=== PATIENT | male | born 1990 | race Caucasian/White ===

== ENCOUNTER 2016-10-15 12:58 | Emergency (ER) | payer MEDICAID ==
--- NOTE | 2016-10-15 13:53 | XRAY Preliminary Report ---
Exam: XR Ankle 3 View RT IMPRESSION: 1. Tiny loose body in the anterior tibiotalar joint space. 2. Tiny loose body or avulsion fracture of indeterminate age off the medial malleolus . [facility] SITE ID: [id number]
--- NOTE | 2016-10-15 14:03 | XRAY Report ---
EXAM: Right Ankle Radiography EXAM DATE: 10/15/2016 01:29 PM. CLINICAL HISTORY: Right ankle pain. COMPARISON: None. TECHNIQUE: 3 views. FINDINGS: Bones: 2 x 3 mm calcification anterior ankle joint, subjacent to the anterior tibial plafond. 2 x 3 mm calcification immediately medial to the tip of the medial malleolus. Joints: Normal. No tibiotalar joint effusion. No subluxations. Soft Tissues: Mild edema over the lateral malleolus. IMPRESSION: 1. Tiny loose body in the anterior tibiotalar joint space. 2. Tiny loose body or avulsion fracture of indeterminate age off the medial malleolus. [facility] Referring Provider Line: [phone] SITE ID: [id number]
[2016-10-15] MEDS ORDERED: IBUPROFEN 400 MG TABLET PO STA (14:41)
[2016-10-15] MEDS ORDERED: IBUPROFEN 800 MG TABLET PO ONE (14:48)
--- NOTE | 2016-10-15 15:04 | ED Physician Documentation ---
History of Present Illness - Stated complaint Stated Complaint: RT ANKLE PAIN - Chief complaint Chief Complaint: Ext Problem - Additonal information Additional information: hx from pt 25 male skateboarding landed hard on R ankle and it everted 90 degrees so his lateral mall was against the ground Review of Systems Musculoskeletal: reports: Pain with weight bearing PD PAST MEDICAL HISTORY - Past Medical History Derm: Psoriasis - Past Surgical History Past Surgical History: No - Allergies Allergies/Adverse Reactions: Allergies Allergy/AdvReac Type Severity Reaction Status Date / Time No Known Drug Allergies Allergy Verified 03/24/16 08:47 - Social History Does the pt smoke?: Yes Smoking Status: Current every day smoker Does the pt drink ETOH?: No Does the pt have substance abuse?: No - Immunizations Immunizations are current?: Yes - POLST Patient has POLST: No PD ED PE NORMAL - Vitals Vital signs reviewed: Yes - Extremities Extremities: Other (RLE markedly swollen and ecchymotic ankle lindsey lateral, TTP lat and med mall as well and lateral lig, no sig prox tib fib or 5th MT TTP, MSV intact) - Neuro Neuro: No motor deficit, No sensory deficit Results - Vitals Vitals: Vital Signs - 24 hr 10/15/16 13:03 Temperature 37.7 C H Heart Rate 70 Respiratory 18 Rate Blood Pressure 118/72 O2 Saturation 98 Oxygen O2 Source Room air - Rads (name of study) ankle Radiology: See rad report (ant tib monserrat space losse body and small avulsion from medial mall (no prior injuries per pt so presume acute)) PD MEDICAL DECISION MAKING - ED course ED course: sever ankle sprain with medial mall avulsion - splint in posterior short leg and referred to ortho for further work up and eval - may need advanced imaging Departure - Departure Disposition: 01 Home, Self Care Clinical Impression: Avulsion fracture of ankle Qualifiers: Encounter type: initial encounter Fracture type: closed Laterality: right Qualified Code(s): S82.891A - Other fracture of right lower leg, initial encounter for closed fracture Condition: Good Instructions: ED Splint Care Fiberglass, ED Crutch Walking, ED Sprain Ankle W X Ray Follow-Up: Marlena Covarrubias MD [Provider Admit Priv/Credential] - Comments: There are no major fractures seen but you have significant injuries to the ligaments and also some small avulsion of bone. So I have referred you to orthopedics for further evaluation. Wear the splint, ice, elevate, no weight bearing Motrin and tylenol as needed for the pain
[2016-10-15 15:21] VITALS: BP 115/70
== END 2016-10-15 15:22 | disposition home or self-care (01) ==
LOC: ED 12:58
DX: S82.51XA Displaced fracture of medial malleolus of right tibia, initial encounter for closed fracture (principal); S93.401A Sprain of unspecified ligament of right ankle, initial encounter; X50.1XXA Overexertion from prolonged static or awkward postures, initial encounter; Y93.51 Activity, roller skating (inline) and skateboarding; Y99.8 Other external cause status; F17.200 Nicotine dependence, unspecified, uncomplicated
CPT/HCPCS: 29505; 73610; 99283; A9270

== ENCOUNTER 2018-08-22 00:57 | Emergency (ER) | payer MEDICAID ==
[2018-08-22] MEDS ORDERED: ACETAMINOPHEN 325 MG TABLET PO STA (01:29)
--- NOTE | 2018-08-22 01:34 | ED Physician Documentation ---
History of Present Illness - Stated complaint Stated Complaint: ANXIETY - Chief complaint Chief Complaint: General - Additonal information Additional information: hx from pt 27 y/o male friend he was very upset and started ounching himself in the face pain to jose r orbits and L hand no LOC or neck pain he is calmer now Review of Systems Eyes: denies: Loss of vision, Decreased vision Ears: denies: Drainage/discharge Nose: denies: Epistaxis Musculoskeletal: reports: Extremity pain PD PAST MEDICAL HISTORY - Past Medical History Past Medical History: Yes Derm: Psoriasis - Past Surgical History Past Surgical History: No - Present Medications Home Medications: Ambulatory Orders Medication Instructions Recorded Confirmed Meloxicam [Mobic] 7.5 mg PO BID PRN #20 tablet 07/01/17 - Allergies Allergies/Adverse Reactions: Allergies Allergy/AdvReac Type Severity Reaction Status Date / Time No Known Drug Allergies Allergy Verified 03/24/16 08:47 - Social History Does the pt smoke?: Yes Smoking Status: Current every day smoker Does the pt drink ETOH?: No Does the pt have substance abuse?: No Substance Use and Type: Marijuana - Immunizations Immunizations are current?: Yes - POLST Patient has POLST: No PD ED PE NORMAL - Vitals Vital signs reviewed: Yes - HEENT HEENT: PERRL, EOMI, Other (brusing to lateral aspect orbit jose r, EOMI no proptosis no hypehma, no step off or crepitus). No: Atraumatic - Cardiac Cardiac: RRR - Respiratory Respiratory: No respiratory distress, Clear bilaterally - Extremities Extremities: Other (L hand TTP 5th MCP nlcascade, MSV intact) Results - Vitals Vitals: Vital Signs - 24 hr 08/22/18 01:01 Temperature 36.8 C Heart Rate 61 Respiratory 16 Rate Blood Pressure 112/74 O2 Saturation 99 Oxygen O2 Source Room air - Rads (name of study) orbits Radiology: See rad report (neg) hand Radiology: See rad report (neg) PD MEDICAL DECISION MAKING - ED course ED course: no fx pt calm now promises not to harm self again and states not suicidal will dc home Departure - Departure Disposition: 01 Home, Self Care Clinical Impression: Grief reaction Facial contusion Qualifiers: Encounter type: initial encounter Qualified Code(s): S00.83XA - Contusion of other part of head, initial encounter Contusion, hand Qualifiers: Encounter type: initial encounter Laterality: left Qualified Code(s): S60.222A - Contusion of left hand, initial encounter Condition: Good Instructions: ED Grief Reaction Comments: The xrays are fine - no fractures. Recommend tylenol or motrin for the pain Ice wrapped in a towel for 20 minutes at a time may help as well. I am so sorry for your loss. You may need support and help to get through this process. You can call the crisis line at any time - there is also a texting crisis line if you prefer that instead of talking. If you feel like you might hurt yourself again,m please come back to the ER - we are always open and here to help you.
--- NOTE | 2018-08-22 02:18 | XRAY Report ---
Reason: blunt trauma pain to 5th MCP Procedure Date: 08/22/2018 Accession Number: [id number] / [id number] Procedure: XR - Hand 3 View LT CPT Code: FULL RESULT: EXAM: LEFT HAND RADIOGRAPHY EXAM DATE: 08/22/2018 01:40 AM. CLINICAL HISTORY: Blunt trauma pain to 5th MCP. COMPARISON: XR HAND 2 VIEW 06/04/2010 10:13 PM. TECHNIQUE: 3 views. FINDINGS: Bones: No acute fracture seen. Joints: No dislocation. Joint spaces appear intact. Soft Tissues: Minimal soft tissue swelling. IMPRESSION: 1. No acute fracture or dislocation seen. [facility]
--- NOTE | 2018-08-22 02:29 | XRAY Report ---
Reason: blunt trauma pain to laterleral lower orbits jose r Procedure Date: 08/22/2018 Accession Number: [id number] / [id number] Procedure: XR - Orbits Complete CPT Code: FULL RESULT: EXAM: ORBITS RADIOGRAPHY EXAM DATE: 08/22/2018 01:40 AM. CLINICAL HISTORY: Blunt trauma pain to lateral lower orbits bilaterally. COMPARISONS: None. TECHNIQUE: 6 views. FINDINGS: Bones: No acute fracture seen. Sinuses: No fluid levels are identified. Other: Dental disease. IMPRESSION: 1. No acute osseous abnormality identified. 2. If clinically indicated, CT would be a more sensitive evaluation. [facility]
[2018-08-22 03:15] VITALS: BP 103/75
== END 2018-08-22 02:44 | disposition home or self-care (01) ==
LOC: ED 00:57
DX: F43.22 Adjustment disorder with anxiety (principal); S00.83XA Contusion of other part of head, initial encounter; S60.222A Contusion of left hand, initial encounter; X83.8XXA Intentional self-harm by other specified means, initial encounter; F17.200 Nicotine dependence, unspecified, uncomplicated
CPT/HCPCS: 70200; 73130; 99282; 99283; A9270

== ENCOUNTER 2019-01-28 09:19 | Emergency (ER) | payer MEDICAID ==
[2019-01-28 09:27] VITALS: BP 120/75
--- NOTE | 2019-01-28 09:40 | ED Physician Documentation ---
PD HPI LOWER EXT INJURY - Stated complaint Stated Complaint: RT FOOT/LEG PAIN - Chief complaint Chief Complaint: Ext Problem - History obtained from History obtained from: Patient - History of Present Illness PD HPI LOW EXT INJURY LOCATION: Right, Lower leg, Ankle Type of injury: Fall Where injury occurred: [place] Timing - onset: How many weeks ago (1) Timing - duration: Weeks (1) Timing - details: Abrupt onset, Still present Improved by: Rest, Immobilization Worsened by: Moving, Palpating Associated symptoms: Swelling, Discolored. No: Weakness, Numbness Contributing factors: No: Anticoagulated Similar symptoms before: Has not had sx before Recently seen: Not recently seen - Additional information Additional information: 28-year-old male was involved in some active role playing sport last weekend when a 250 pound male fell on his foot while his leg was on the ground. He complains of some pain to the lateral aspect of his leg and ankle. He is able to bear weight, he does have some pain into the bottom of his foot. Review of Systems Constitutional: denies: Fever Respiratory: denies: Cough GI: denies: Vomiting PD PAST MEDICAL HISTORY - Past Medical History Derm: Psoriasis - Past Surgical History Past Surgical History: No - Present Medications Home Medications: Ambulatory Orders Medication Instructions Recorded Confirmed Meloxicam [Mobic] 7.5 mg PO BID PRN #20 tablet 07/01/17 - Allergies Allergies/Adverse Reactions: Allergies Allergy/AdvReac Type Severity Reaction Status Date / Time No Known Drug Allergies Allergy Verified 03/24/16 08:47 - Social History Does the pt smoke?: Yes Smoking Status: Current every day smoker Does the pt drink ETOH?: No Does the pt have substance abuse?: No - Immunizations Immunizations are current?: Yes - POLST Patient has POLST: No PD ED PE NORMAL - Vitals Vital signs reviewed: Yes (normal ) - General General: Alert and oriented X 3, No acute distress, Well developed/nourished - HEENT HEENT: Atraumatic, PERRL, EOMI - Respiratory Respiratory: No respiratory distress - Derm Derm: Normal color, Warm and dry, No rash - Extremities Extremities: No deformity, Other (There is swelling and point tenderness to the rigth lateral foot and distal fibula. There is no tenderness to the proximal 5th. There is ecchymosis to the lateral aspect of the foot. ) - Neuro Neuro: Alert and oriented X 3, golf club repairer 2-12 intact, No motor deficit, No sensory deficit, Normal speech Eye Opening: Spontaneous Motor: Obeys Commands Verbal: Oriented GCS Score: 15 - Psych Psych: Normal mood, Normal affect Results - Vitals Vitals: Vital Signs - 24 hr 01/28/19 09:24 Temperature 36.2 C L Heart Rate 67 Respiratory 18 Rate Blood Pressure 120/75 O2 Saturation 100 Oxygen O2 Source Room air - Rads (name of study) tib fib Radiology: Prelim report reviewed (Impression: Normal tibia fibula radiography.), EMP read indepedently, See rad report Procedures - Splint (location) right ankle Splint applied by: Tech Type of splint: Ankle airsplint Other: Patient tolerated well, No complications, Neurovascular intact PD MEDICAL DECISION MAKING - ED course Complexity details: reviewed results, re-evaluated patient, considered differential, d/w patient ED course: 28 y/o male with a right leg injury has no evidence of fracture. Departure - Departure Disposition: 01 Home, Self Care Clinical Impression: Ankle sprain Qualifiers: Encounter type: initial encounter Involved ligament of ankle: anterior talofibular ligament Laterality: right Qualified Code(s): S93.491A - Sprain of other ligament of right ankle, initial encounter Condition: Stable Instructions: ED Sprain Ankle W X Ray Follow-Up: [facility] [Provider Group]
--- NOTE | 2019-01-28 10:13 | XRAY Report ---
Reason: pain to distal fibula lateral leg Procedure Date: 01/28/2019 Accession Number: [id number] / [id number] Procedure: XR - Tib/Fib RT CPT Code: FULL RESULT: EXAM: RIGHT TIBIA/FIBULA RADIOGRAPHY EXAM DATE: 01/28/2019 09:58 AM. CLINICAL HISTORY: Pain to distal fibula lateral leg. Bruising and swelling. A 250 pound person fell on the lateral ankle. COMPARISON: None. TECHNIQUE: 4 views. FINDINGS: Bones: Normal. No fracture or bone lesion. Joints: The visualized knee and ankle joints are normal. No effusions. Soft Tissues: Normal. No soft tissue swelling. IMPRESSION: Normal tibia/fibula radiography. [facility]
== END 2019-01-28 10:40 | disposition home or self-care (01) ==
LOC: ED 09:19
DX: F17.200 Nicotine dependence, unspecified, uncomplicated (principal); S93.491A Sprain of other ligament of right ankle, initial encounter; W23.0XXA Caught, crushed, jammed, or pinched between moving objects, initial encounter; Y93.89 Activity, other specified; Y92.830 Public park as the place of occurrence of the external cause
CPT/HCPCS: 99283

== ENCOUNTER 2019-03-09 09:59 | Outpatient (CLI) | payer MEDICAID | END 2019-03-09 10:00 | disposition EMS.NT | LOC: EMS 09:59 | PROVIDERS: ATTEND Surgery | DX: S01.119A Laceration without foreign body of unspecified eyelid and periocular area, initial encounter (principal); Y04.2XXA Assault by strike against or bumped into by another person, initial encounter ==

== ENCOUNTER 2023-08-14 00:21 | Outpatient (CLI) | payer MEDICAID | END 2023-08-14 23:59 | disposition critical access hospital (66) | LOC: EMS 00:21 | DX: S01.511A Laceration without foreign body of lip, initial encounter (principal); S01.112A Laceration without foreign body of left eyelid and periocular area, initial encounter; R55 Syncope and collapse; W18.39XA Other fall on same level, initial encounter; Y92.002 Bathroom of unspecified non-institutional (private) residence as the place of occurrence of the external cause; F12.90 Cannabis use, unspecified, uncomplicated | CPT/HCPCS: A0425; A0429; A0999 ==

== ENCOUNTER 2023-08-14 00:41 | Emergency (ER) | payer MEDICAID ==
[2023-08-14 00:57] VITALS: BP 98/64; O2SAT 100
[2023-08-14] MEDS ORDERED: TETANUS/DIPHTHERIA/PERTUSSIS 0.5 ML SYRINGE IM ONE (01:59)
--- NOTE | 2023-08-14 02:02 | ED Physician Documentation ---
PD HPI SKIN - Stated complaint Stated Complaint: FALL/L EYEBROW LAC - Chief complaint Chief Complaint: Laceration - History obtained from History obtained from: Patient, EMS - Additional information Additional information: Patient presents by EMS from home for mouth trauma. Patient was smoking dabs of THC at home, he states that he smoked a dab and then got up, but felt faint and fell forward, striking his face against the kitchen counter. He was concerned he may need stitches and so called 911. Review of Systems Constitutional: denies: Fever, Chills Skin: reports: Laceration (s). denies: Rash, Lesions Neurologic: denies: Generalized weakness, Focal weakness PD PAST MEDICAL HISTORY - Past Medical History Derm: Psoriasis - Past Surgical History Past Surgical History: No - Allergies Allergies/Adverse Reactions: Allergies Allergy/AdvReac Type Severity Reaction Status Date / Time No Known Drug Allergies Allergy Verified 08/14/23 00:53 - Social History Does the pt smoke?: Yes Smoking Status: Current every day smoker Does the pt drink ETOH?: No Does the pt have substance abuse?: Yes Substance Use and Type: Marijuana - Immunizations Immunizations are current?: Yes - POLST Patient has POLST: No PD ED PE NORMAL - Vitals Vital signs reviewed: Yes - General General: Alert and oriented X 3, Well developed/nourished - HEENT HEENT: Other (stellate laceration inner L lower lip, not through-through, no expansion to mitch border) - Cardiac Cardiac: RRR - Respiratory Respiratory: No respiratory distress - Derm Derm: Normal color, Warm and dry - Extremities Extremities: No deformity, No tenderness to palpate, Normal ROM s pain - Neuro Neuro: Alert and oriented X 3, transcription typist 2-12 intact, Normal speech Results - Vitals Vitals: Oxygen O2 Source Room air PD Medical Decision Making - ED course Complexity details: re-evaluated patient, considered differential, d/w patient ED course: Stellate laceration on inner lower lip. It is not through and through and does not cross really border. This can be managed conservatively and will heal on its own. Patient counseled to use salt water gargles anytime he eats to prevent infection and promote healing Departure - Departure Disposition: 01 Home, Self Care Clinical Impression: Lip laceration Condition: Stable Instructions: ED Laceration Mouth Comments: Today you have a laceration on the inside of your lower lip. These are typicall y not sutured and will heal on their own. I strongly advised that if you eat or drink anything that you rinse your mouth out with warm water to avoid infection. Take Tylenol and Motrin as needed and you may apply ice for swelling. Avoid spicy, acidic, or hot foods while your lip is healing Forms: PCP List Discharge Date/Time: 08/14/23 02:35
== END 2023-08-14 02:35 | disposition home or self-care (01) ==
LOC: EDUNIT# → ED 00:41
DX: S01.511A Laceration without foreign body of lip, initial encounter (principal); W18.30XA Fall on same level, unspecified, initial encounter; Y92.009 Unspecified place in unspecified non-institutional (private) residence as the place of occurrence of the external cause; F17.200 Nicotine dependence, unspecified, uncomplicated; Z23 Encounter for immunization
CPT/HCPCS: 99282; 99283